=== PATIENT | female | born 1960 | race Caucasian/White ===

== ENCOUNTER 2024-07-10 14:22 | Emergency (ER) | payer OTHER ==
[~2024-07-10] VITALS: Ht 170.2 cm; Wt 86.3 kg
[2024-07-10 14:28] VITALS: BP 153/93; PULSE 85; TEMP 98.3
[2024-07-10 14:47] VITALS: RESP 24; O2SAT 100
== END 2024-07-10 14:35 | disposition left against medical advice (07) ==
LOC: ER 14:26
DX: T78.40XA Allergy, unspecified, initial encounter (principal); Z53.21 Procedure and treatment not carried out due to patient leaving prior to being seen by health care provider